=== PATIENT | female | born 1980 | race African-American/Black ===

== ENCOUNTER 2019-07-30 22:47 | Emergency (ER) | payer OTHER ==
[~2019-07-30] VITALS: Ht 172.7 cm; Wt 118.1 kg
[~2019-07-30 22:47] MED LIST: PROM25AM6 PO
[2019-07-30] MEDS ORDERED: SULFAMETH./TRIMETHOPRIM DS 800MG/160MG TABLET PO ONE (23:00)
[2019-07-30] MEDS ORDERED: LIDOCAINE-MPF 1%, 5ML INFIL ONE (23:00)
[2019-07-30] MEDS ORDERED: CEPHALEXIN 500 MG CAPSULE PO ONE (23:00)
[2019-07-30] MEDS ORDERED: ONDANSETRON ODT 4 MG ONE (23:16)
--- NOTE | 2019-07-30 23:16 | NUR ---
Patient presents to ER c/o nausea and anxiety. She saw her PCP on Sunday for flank pain; her urine came back normal and she was supposed to get labs drawn but she hasn't felt good enough. Her BP meds were supposed to be filled after the labs, therefore she has been out of her BP meds for a couple days and is anxious because of it. Patient has been through some major life changes recently and is feeling stressed but she has the support of her father. Patient appears anxious but otherwise in NAD. Patient denies pain but states she has "fluttering" in her chest. Patient is currently nauseous.
[2019-07-30] MEDS ORDERED: ONDANSETRON ODT 4 MG PO ONE (23:30)
[2019-07-30 23:41] LABS: HCG UR SG 1.036 (1.003-1.030)
[2019-07-30 23:42] LABS: MICROSCOPIC INDICATED
[2019-07-30 23:45] LABS: BASOPHILS # (AUTO) 0.03 x10^3/uL (0-0.1); BASOPHILS % (AUTO) 0 % (0-1); EOSINOPHILS # (AUTO) 0.05 x10^3/uL (0-0.4); EOSINOPHILS % (AUTO) 1 % (1-7); LYMPHOCYTES # (AUTO) 1.72 x10^3/uL (1-3.4); LYMPHOCYTES % (AUTO) 16 % (22-44); MD NO; MEAN CORPUSCULAR HGB CONC 31.9 g/dL (32.4-35.8); MEAN CORPUSCULAR VOLUME 81.5 fL (80-100); MONOCYTES % (AUTO) 5 % (2-9); NEUTROPHILS # (AUTO) 8.17 x10^3/uL (1.8-6.8); NEUTROPHILS % (AUTO) 78 % (42-75); PLATELET COUNT 264 x10^3/uL (130-400); RED BLOOD COUNT 4.77 x10^6/uL (3.82-5.3); RED CELL DISTRIBUTION WIDTH 15.6 % (9.6-15.2)
[2019-07-30 23:51] LABS: ALBUMIN 3.4 g/dL (3.4-5.0); ANION GAP 6 mmol/L (5-15); CALCIUM 8.5 mg/dL (8.5-10.1); CHLORIDE 110 mmol/L (98-107)
[2019-07-30 23:57] LABS: ALANINE AMINOTRANSFERASE 20 U/L (12-78); ALKALINE PHOSPHATASE 55 U/L (45-117); BILIRUBIN,TOTAL 0.5 mg/dL (0.2-1.0); CREATININE 1.04 mg/dL (0.55-1.02); TOTAL PROTEIN 7.6 g/dL (6.4-8.2); TROPONIN I < 0.015 ng/mL (0.000-0.045)
[2019-07-31 00:05] VITALS: BP 139/81
== END 2019-07-31 01:10 | disposition home or self-care (01) ==
LOC: ED 23:30
DX: R07.89 Other chest pain (principal); F41.1 Generalized anxiety disorder; R11.2 Nausea with vomiting, unspecified; I10 Essential (primary) hypertension
CPT/HCPCS: 36415; 71046; 80053; 81001; 81025; 84484; 85025; 93005; 99284; Q0162

== ENCOUNTER 2019-08-13 17:41 | Emergency (ER) | payer OTHER ==
[~2019-08-13] VITALS: Ht 172.7 cm; Wt 114.3 kg
[2019-08-13 17:43] VITALS: BP 117/73
--- NOTE | 2019-08-13 19:32 | NUR ---
PT. WAS CALLED AT 0, 1919 AND 1929 NO ANSWER.
== END 2019-08-13 19:35 ==
LOC: ED 19:25
DX: R00.2 Palpitations (principal); R20.0 Anesthesia of skin; R10.31 Right lower quadrant pain; Z53.21 Procedure and treatment not carried out due to patient leaving prior to being seen by health care provider
CPT/HCPCS: 93005

== ENCOUNTER 2019-08-16 06:01 | Emergency (ER) | payer BC, OTHER ==
[~2019-08-16] VITALS: Ht 172.7 cm; Wt 114.8 kg
[2019-08-16] MEDS ORDERED: HYDROmorphone 2 MG/ML, 1ML IVPush PRN (06:30)
[2019-08-16] MEDS ORDERED: SODIUM CHLORIDE FLUSH 10ML SYR IVF ONE (06:30)
[2019-08-16] MEDS ORDERED: ONDANSETRON 2MG/ML, 2ML IVPush ONE (06:30)
--- NOTE | 2019-08-16 06:56 | NUR ---
RECEIVED REPORT FROM CHICO PABLO. PT TEARY AND UPSET BECAUSE SHE DOES NOT KNOW WHAT IS GOING ON WITH HER BODY. PT STATES SHE HAS HAD ABDOMINAL PAIN AND N/V FOR 2 WEEKS. UP TO BATHROOM TO GIVE SAMPLE AND TO BE MEDICATED PER ORDERS FOR PAIN
[2019-08-16] MEDS ORDERED: ONDANSETRON 2MG/ML, 2ML ONE (07:01)
[2019-08-16] MEDS ORDERED: HYDROmorphone 1 MG/ML, 1ML INJ ONE (07:01)
[2019-08-16 07:09] LABS: BASOPHILS # (AUTO) 0.02 x10^3/uL (0-0.1); BASOPHILS % (AUTO) 0 % (0-1); EOSINOPHILS # (AUTO) 0.08 x10^3/uL (0-0.4); EOSINOPHILS % (AUTO) 1 % (1-7); LYMPHOCYTES % (AUTO) 24 % (22-44); MD NO; MEAN CORPUSCULAR HEMOGLOBIN 26.1 pg (27.0-34.8); MEAN CORPUSCULAR HGB CONC 31.8 g/dL (32.4-35.8); MEAN PLATELET VOLUME 8.4 fL (7.4-10.4); MONOCYTES # (AUTO) 0.54 x10^3/uL (0.2-0.8); MONOCYTES % (AUTO) 6 % (2-9); NEUTROPHILS # (AUTO) 5.84 x10^3/uL (1.8-6.8); NEUTROPHILS % (AUTO) 69 % (42-75); PLATELET COUNT 271 x10^3/uL (130-400); RED BLOOD COUNT 4.86 x10^6/uL (3.82-5.3); RED CELL DISTRIBUTION WIDTH 15.6 % (9.6-15.2)
--- NOTE | 2019-08-16 07:15 | NUR ---
TECH AT BEDSIDE PERFORMING ULTRASOUND
[2019-08-16 07:17] LABS: ALANINE AMINOTRANSFERASE 14 U/L (12-78); ALBUMIN 3.5 g/dL (3.4-5.0); ANION GAP 7 mmol/L (5-15); CALCIUM 8.7 mg/dL (8.5-10.1); CHLORIDE 107 mmol/L (98-107); CREATININE 1.12 mg/dL (0.55-1.02)
[2019-08-16 07:22] LABS: ALKALINE PHOSPHATASE 58 U/L (45-117); BILIRUBIN,TOTAL 0.3 mg/dL (0.2-1.0); TOTAL PROTEIN 7.7 g/dL (6.4-8.2)
[2019-08-16 07:51] LABS: MICROSCOPIC AUTO
[2019-08-16 07:54] LABS: CULTURE INDICATED? NO
--- NOTE | 2019-08-16 07:57 | NUR ---
PAIN IMPROVED SINCE MEDICATED. AWAITING DISPO
[2019-08-16] MEDS ORDERED: OMNIPAQUE 350 MG/ML, 100ML BOTTLE ONE (08:47)
--- NOTE | 2019-08-16 09:24 | NUR ---
CLIENT FINANCE ANALYST AND PT STATE SHE HAD SHOULDER PAIN WHEN RECEIVING CONTRAST. C/O NO PROBLEMS WITH AIRWAY. AT THIS TIME SHE STATES SHE HAS NO SYMPTOMS.
[2019-08-16 09:56] VITALS: BP 122/75
== END 2019-08-16 09:58 | disposition home or self-care (01) ==
LOC: ED 06:38
DX: R10.84 Generalized abdominal pain (principal); I10 Essential (primary) hypertension; Z98.51 Tubal ligation status
CPT/HCPCS: 36415; 74022; 74177; 76700; 80053; 81001; 83690; 84703; 85025; 96374; 96375; 99284; J1170; J2405; Q9967

== ENCOUNTER 2019-09-11 12:11 | Emergency (ER) | payer OTHER ==
[~2019-09-11] VITALS: Ht 172.7 cm; Wt 112.2 kg
[2019-09-11] MEDS ORDERED: ADENOSINE 6 MG/2 ML ONE (12:22)
[2019-09-11 13:00] LABS: BASOPHILS # (AUTO) 0.03 x10^3/uL (0-0.1); BASOPHILS % (AUTO) 0 % (0-1); EOSINOPHILS # (AUTO) 0.28 x10^3/uL (0-0.4); EOSINOPHILS % (AUTO) 3 % (1-7); LYMPHOCYTES # (AUTO) 1.92 x10^3/uL (1-3.4); LYMPHOCYTES % (AUTO) 20 % (22-44); MD NO; MEAN CORPUSCULAR HEMOGLOBIN 26.3 pg (27.0-34.8); MEAN CORPUSCULAR HGB CONC 32.1 g/dL (32.4-35.8); MEAN PLATELET VOLUME 8.6 fL (7.4-10.4); MONOCYTES # (AUTO) 0.61 x10^3/uL (0.2-0.8); MONOCYTES % (AUTO) 6 % (2-9); NEUTROPHILS # (AUTO) 6.98 x10^3/uL (1.8-6.8); NEUTROPHILS % (AUTO) 71 % (42-75); PLATELET COUNT 248 x10^3/uL (130-400); RED BLOOD COUNT 4.82 x10^6/uL (3.82-5.3); RED CELL DISTRIBUTION WIDTH 15.9 % (9.6-15.2)
[2019-09-11 13:06] LABS: ALANINE AMINOTRANSFERASE 18 U/L (12-78); ALBUMIN 3.5 g/dL (3.4-5.0); ANION GAP 8 mmol/L (5-15); CALCIUM 8.9 mg/dL (8.5-10.1); CHLORIDE 106 mmol/L (98-107); CREATININE 1.01 mg/dL (0.55-1.02)
[2019-09-11 13:08] LABS: ALKALINE PHOSPHATASE 65 U/L (45-117); BILIRUBIN,TOTAL 0.2 mg/dL (0.2-1.0); TOTAL PROTEIN 7.8 g/dL (6.4-8.2)
--- NOTE | 2019-09-11 13:34 | NUR ---
PT HERE WITH MULTIPLE C/O STATING THROAT PAIN, BODY ACHES, HEADACHE, PAINFUL LYMPH NODES. PT STATES SHE HAS BEEN TO MULTIPLE DOCTORS AND HAS "HAD NO ANSWERS." PT DRESSED IN GOWN AND ON MONITOR, NAD, ROOM AIR, CALL LIGHT WITHIN REACH. PT STATES SHE WAS SENT TO [facility]IMARY AND THEY SENT HER HERE FOR A MONO TEST. PT VERY TEARFUL, STATES FRUSTRATION THAT SHE DOES NOT KNOW WHAT IS WRONG. SIDERAIL X [address]
[2019-09-11] MEDS ORDERED: AMLO10TA8 PO (13:41)
[2019-09-11] MEDS ORDERED: HYDR25TA6 PO (13:41)
--- NOTE | 2019-09-11 13:42 | NUR ---
MED REC COMPLETED.
--- NOTE | 2019-09-11 14:11 | NUR ---
US AT BEDSIDE.
[2019-09-11 14:38] VITALS: BP 132/83
[2019-09-11] MEDS ORDERED: ACETAMINOPHEN 500 MG TABLET ONE (14:41)
[2019-09-11] MEDS ORDERED: ONDANSETRON ODT 4 MG ONE (14:41)
--- NOTE | 2019-09-11 14:45 | NUR ---
PT C/O 02/22 HEADACHE AND NAUSEA. UPDATED. ORDERED TYLENOL AND ZOFRAN. PT TOOK ZOFRAN BUT REFUSED TYLENOL. STATES "THIS WON'T DO ANYTHING". UPDATED. NO NEW ORDERS AT THIS TIME.
[2019-09-11] MEDS ORDERED: ACETAMINOPHEN 500 MG TABLET PO ONE (15:00)
[2019-09-11] MEDS ORDERED: ONDANSETRON ODT 4 MG PO ONE (15:00)
--- NOTE | 2019-09-11 15:22 | NUR ---
PT AWAITING DC PAPERWORK.
--- NOTE | 2019-09-11 15:50 | NUR ---
Patient given discharge instructions and they have confirmed that they understand the instructions. Patient ambulatory with steady gait.
== END 2019-09-11 15:51 | disposition home or self-care (01) ==
LOC: ED 15:45
DX: M79.10 Myalgia, unspecified site (principal); R51 Headache; J02.9 Acute pharyngitis, unspecified; B34.9 Viral infection, unspecified; I10 Essential (primary) hypertension
CPT/HCPCS: 36415; 71046; 76700; 80053; 83690; 85025; 86308; 99285; Q0162

== ENCOUNTER 2019-11-10 06:40 | Outpatient (CLI) | payer OTHER ==
[~2019-11-10 06:40] MED LIST changes: +AMLO10TA8 PO; +HYDR25TA6 PO
== END 2019-11-10 23:59 | disposition home or self-care (01) ==
LOC: RAD 06:40
PROVIDERS: ATTEND Internal Medicine Gastroenterology
DX: K59.00 Constipation, unspecified (principal); R14.0 Abdominal distension (gaseous); R10.11 Right upper quadrant pain; R10.12 Left upper quadrant pain; R63.4 Abnormal weight loss
CPT/HCPCS: 74240; 74248; 76770

== ENCOUNTER 2019-11-16 11:30 | Emergency (ER) | payer OTHER ==
[~2019-11-16] VITALS: Ht 172.7 cm; Wt 102.0 kg
[2019-11-16] MEDS ORDERED: SODIUM CHLORIDE 0.9% 1,000 ML IV ONE (12:11)
[2019-11-16 12:23] LABS: BASOPHILS # (AUTO) 0.03 x10^3/uL (0-0.1); BASOPHILS % (AUTO) 0 % (0-1); EOSINOPHILS # (AUTO) 0.03 x10^3/uL (0-0.4); EOSINOPHILS % (AUTO) 0 % (1-7); LYMPHOCYTES # (AUTO) 2.39 x10^3/uL (1-3.4); LYMPHOCYTES % (AUTO) 25 % (22-44); MD NO; MEAN CORPUSCULAR HEMOGLOBIN 27.5 pg (27.0-34.8); MEAN CORPUSCULAR HGB CONC 32.5 g/dL (32.4-35.8); MEAN CORPUSCULAR VOLUME 84.6 fL (80-100); MEAN PLATELET VOLUME 8.7 fL (7.4-10.4); MONOCYTES # (AUTO) 0.49 x10^3/uL (0.2-0.8); MONOCYTES % (AUTO) 5 % (2-9); NEUTROPHILS # (AUTO) 6.78 x10^3/uL (1.8-6.8); NEUTROPHILS % (AUTO) 70 % (42-75); PLATELET COUNT 293 x10^3/uL (130-400); RED BLOOD COUNT 5.25 x10^6/uL (3.82-5.3); RED CELL DISTRIBUTION WIDTH 15.9 % (9.6-15.2)
[2019-11-16] MEDS ORDERED: ONDANSETRON 2MG/ML, 2ML IV ONE (12:30)
[2019-11-16] MEDS ORDERED: KETOROLAC 30 MG/1 ML IVPush ONE (12:30)
[2019-11-16] MEDS ORDERED: SODIUM CHLORIDE 0.9% 1,000ML IVBOLUS ONE (12:30)
[2019-11-16] MEDS ORDERED: SODIUM CHLORIDE FLUSH 10ML SYR IVF ONE (12:30)
[2019-11-16 12:34] LABS: ALANINE AMINOTRANSFERASE 15 U/L (12-78); ALBUMIN 3.5 g/dL (3.4-5.0); ANION GAP 9 mmol/L (5-15); CHLORIDE 102 mmol/L (98-107); CREATININE 1.11 mg/dL (0.55-1.02)
[2019-11-16 12:38] LABS: ALKALINE PHOSPHATASE 54 U/L (45-117); BILIRUBIN,TOTAL 0.3 mg/dL (0.2-1.0); TOTAL PROTEIN 7.7 g/dL (6.4-8.2); TROPONIN I < 0.015 ng/mL (0.000-0.045)
[2019-11-16] MEDS ORDERED: ONDANSETRON 2MG/ML, 2ML ONE (12:42)
[2019-11-16] MEDS ORDERED: KETOROLAC 30 MG/1 ML ONE (12:42)
[2019-11-16] MEDS ORDERED: POTASSIUM CHLORIDE 20 MEQ TAB.ER.PRT PO ONE (13:30)
[2019-11-16 13:42] VITALS: BP 144/86
== END 2019-11-16 14:28 | disposition home or self-care (01) ==
LOC: ED 12:05
DX: R07.89 Other chest pain (principal); I10 Essential (primary) hypertension; Z98.51 Tubal ligation status
CPT/HCPCS: 36415; 71045; 80053; 84484; 85025; 93005; 96374; 99285; J1885; J7030

== ENCOUNTER 2019-11-30 04:06 | Emergency (ER) | payer OTHER ==
[~2019-11-30] VITALS: Ht 172.7 cm; Wt 105.3 kg
[2019-11-30] MEDS ORDERED: SODIUM CHLORIDE 0.9% 1,000ML IVBOLUS ONE (05:00)
[2019-11-30] MEDS ORDERED: METOCLOPRAMIDE 5 MG/ML, 2ML IVPush ONE (05:00)
[2019-11-30] MEDS ORDERED: DIPHENHYDRAMINE 50 MG/ML, 1ML IVPush ONE (05:00)
[2019-11-30] MEDS ORDERED: METOCLOPRAMIDE 5 MG/ML, 2ML ONE (05:01)
[2019-11-30] MEDS ORDERED: DIPHENHYDRAMINE 50 MG/ML, 1ML ONE (05:01)
[2019-11-30 05:09] LABS: BASOPHILS # (AUTO) 0.02 x10^3/uL (0-0.1); BASOPHILS % (AUTO) 0 % (0-1); EOSINOPHILS # (AUTO) 0.12 x10^3/uL (0-0.4); EOSINOPHILS % (AUTO) 2 % (1-7); LYMPHOCYTES # (AUTO) 2.18 x10^3/uL (1-3.4); LYMPHOCYTES % (AUTO) 27 % (22-44); MD NO; MEAN CORPUSCULAR HEMOGLOBIN 27.7 pg (27.0-34.8); MEAN CORPUSCULAR HGB CONC 32.5 g/dL (32.4-35.8); MEAN CORPUSCULAR VOLUME 85.1 fL (80-100); MEAN PLATELET VOLUME 8.8 fL (7.4-10.4); MONOCYTES # (AUTO) 0.54 x10^3/uL (0.2-0.8); MONOCYTES % (AUTO) 7 % (2-9); NEUTROPHILS # (AUTO) 5.09 x10^3/uL (1.8-6.8); NEUTROPHILS % (AUTO) 64 % (42-75); PLATELET COUNT 218 x10^3/uL (130-400); RED BLOOD COUNT 4.79 x10^6/uL (3.82-5.3); RED CELL DISTRIBUTION WIDTH 16.5 % (9.6-15.2)
--- NOTE | 2019-11-30 05:14 | NUR ---
C/O NECK PAIN, HEADACHE, N/V x A COUPLE DAYS. PIV PLACED AND PT MEDICATED FOR DE [place] TORRE PER EMAR.
[2019-11-30 05:15] LABS: ALBUMIN 3.4 g/dL (3.4-5.0); ANION GAP 5 mmol/L (5-15); CHLORIDE 107 mmol/L (98-107); CREATININE 1.11 mg/dL (0.55-1.02)
--- NOTE | 2019-11-30 06:49 | NUR ---
pt reports her head and neck still hurt with pain improving from a 910 to a 810
[2019-11-30] MEDS ORDERED: KETOROLAC 30 MG/1 ML ONE (07:11)
--- NOTE | 2019-11-30 07:12 | NUR ---
REPORT RECEIVED FROM SAMY UMANZOR. THIS RN TO ASSUME FULL CARE. PT LAYING IN BED, LIGHTS OFF FOR COMFORT. VSS. WILL CONTINUE TO MONITOR.
[2019-11-30 07:13] VITALS: BP 120/72
--- NOTE | 2019-11-30 07:23 | NUR ---
ERP TO BEDSIDE.
[2019-11-30] MEDS ORDERED: KETOROLAC 30 MG/1 ML IVPush ONE (07:30)
== END 2019-11-30 08:18 | disposition home or self-care (01) ==
LOC: ED 05:51
DX: G89.29 Other chronic pain (principal); R51 Headache; R11.2 Nausea with vomiting, unspecified; I10 Essential (primary) hypertension
CPT/HCPCS: 36415; 80048; 82040; 85025; 96361; 96374; 96375; 99284; J1200; J1885; J2765; J7030

== ENCOUNTER 2020-02-12 10:07 | Emergency (ER) | payer OTHER ==
[~2020-02-12] VITALS: Ht 172.7 cm; Wt 108.0 kg
[2020-02-12] MEDS ORDERED: PROP10TA51 PO (10:22)
[2020-02-12] MEDS ORDERED: URSO250T3 PO (10:22)
[2020-02-12] MEDS ORDERED: BUTA1CAP59 PO (10:22)
[2020-02-12] MEDS ORDERED: TUMERIC (10:29)
[2020-02-12] MEDS ORDERED: SODIUM CHLORIDE FLUSH 10ML SYR IVF ONE (10:30)
[2020-02-12] MEDS ORDERED: ONDANSETRON 2MG/ML, 2ML IVPush ONE (10:30)
--- NOTE | 2020-02-12 10:38 | NUR ---
PT C/O RUQ PAIN RADIATING TO RT FLANK AREA. NO MEDS TAKEN FOR SX. LAST ORAL: WATER THIS AM, FOOD LAST NOC. PT STATES SHE HAD COVID EXPOSURE 2 WEEKS AGO, WAS TESTED LAST SUNDAY "BUT THE LAB LOST MY RESULTS SO THEY WERE GOING TO RETEST ME". PT DENIES COVID SX CURRENTLY. RESP EVEN & UNLABORED, SPEECH CLEAR, SKIN WNL. U/S AT BS
[2020-02-12] MEDS ORDERED: IRON (10:45)
[2020-02-12] MEDS ORDERED: VITAMIN B (10:45)
[2020-02-12] MEDS ORDERED: [UNRECOGNIZED DRUG - OTHER] (10:45)
[2020-02-12 11:02] LABS: MICROSCOPIC AUTO
[2020-02-12 11:06] LABS: BASOPHILS # (AUTO) 0.02 x10^3/uL (0-0.1); BASOPHILS % (AUTO) 0 % (0-1); EOSINOPHILS # (AUTO) 0.13 x10^3/uL (0-0.4); EOSINOPHILS % (AUTO) 2 % (1-7); LYMPHOCYTES % (AUTO) 33 % (22-44); MD NO; MEAN CORPUSCULAR HEMOGLOBIN 26.8 pg (27.0-34.8); MEAN CORPUSCULAR HGB CONC 31.5 g/dL (32.4-35.8); MEAN CORPUSCULAR VOLUME 85.2 fL (80-100); MEAN PLATELET VOLUME 8.1 fL (7.4-10.4); MONOCYTES # (AUTO) 0.41 x10^3/uL (0.2-0.8); MONOCYTES % (AUTO) 6 % (2-9); NEUTROPHILS # (AUTO) 3.72 x10^3/uL (1.8-6.8); NEUTROPHILS % (AUTO) 58 % (42-75); PLATELET COUNT 227 x10^3/uL (130-400); RED BLOOD COUNT 4.43 x10^6/uL (3.82-5.3)
--- NOTE | 2020-02-12 11:09 | NUR ---
PT DENIES NAUSEA; WILL HOLD ZOFRAN, FOR NOW. WILL REQUEST PAIN MED FOR PT.
[2020-02-12 11:12] LABS: ANION GAP 4 mmol/L (5-15); CALCIUM 8.6 mg/dL (8.5-10.1); CHLORIDE 111 mmol/L (98-107)
[2020-02-12] MEDS ORDERED: ACETAMINOPHEN 325 MG TABLET ONE (11:15)
[2020-02-12] MEDS ORDERED: ACETAMINOPHEN 325 MG TABLET PO ONE (11:30)
[2020-02-12 11:44] LABS: ALANINE AMINOTRANSFERASE 18 U/L (12-78); ALKALINE PHOSPHATASE 57 U/L (45-117); BILIRUBIN,TOTAL 0.3 mg/dL (0.2-1.0); CREATININE 0.92 mg/dL (0.55-1.02)
--- NOTE | 2020-02-12 12:20 | NUR ---
PT REQUESTED COPIES OF LAB AND U/S REPORTS. DOCUMENTS PRINTED FOR PT.
[2020-02-12 12:29] VITALS: BP 135/84
== END 2020-02-12 12:40 | disposition home or self-care (01) ==
LOC: ED 10:42
DX: R10.11 Right upper quadrant pain (principal); R11.0 Nausea; I10 Essential (primary) hypertension; Z88.9 Allergy status to unspecified drugs, medicaments and biological substances; Z98.51 Tubal ligation status; Z79.899 Other long term (current) drug therapy
CPT/HCPCS: 36415; 76700; 80053; 81001; 83690; 84703; 85025; 87086; 99284

== ENCOUNTER → 2020-04-08 | Outpatient (CLI) | payer OTHER ==
[~2020-04-08] MED LIST changes: +ALPR0.25 PO; +BUTA1CAP59 PO; +Co Q-10 PO; +IRON; +PROP10TA51 PO; +TUMERIC; +URSO250T3 PO; +VITAMIN B; +[UNRECOGNIZED DRUG - OTHER]
[2020-04-08 17:02] LABS: ALANINE AMINOTRANSFERASE 18 U/L (12-78); ALBUMIN 3.5 g/dL (3.4-5.0); ANION GAP 5 mmol/L (5-15); CHLORIDE 105 mmol/L (98-107)
[2020-04-08 17:05] LABS: ALKALINE PHOSPHATASE 59 U/L (45-117); BILIRUBIN,TOTAL 0.2 mg/dL (0.2-1.0); CREATININE 1.04 mg/dL (0.55-1.02); TOTAL PROTEIN 7.8 g/dL (6.4-8.2)
[2020-04-11 09:22] LABS: BASOPHILS # (AUTO) 0.02 x10^3/uL (0-0.1); BASOPHILS % (AUTO) 0 % (0-1); EOSINOPHILS # (AUTO) 0.04 x10^3/uL (0-0.4); EOSINOPHILS % (AUTO) 1 % (1-7); LYMPHOCYTES # (AUTO) 1.77 x10^3/uL (1-3.4); LYMPHOCYTES % (AUTO) 25 % (22-44); MD NO; MEAN CORPUSCULAR HEMOGLOBIN 26.9 pg (27.0-34.8); MEAN CORPUSCULAR HGB CONC 31.6 g/dL (32.4-35.8); MEAN PLATELET VOLUME 7.9 fL (7.4-10.4); MONOCYTES # (AUTO) 0.39 x10^3/uL (0.2-0.8); MONOCYTES % (AUTO) 6 % (2-9); NEUTROPHILS # (AUTO) 4.91 x10^3/uL (1.8-6.8); NEUTROPHILS % (AUTO) 69 % (42-75); PLATELET COUNT 236 x10^3/uL (130-400); RED BLOOD COUNT 4.74 x10^6/uL (3.82-5.3); RED CELL DISTRIBUTION WIDTH 15.2 % (9.6-15.2)
== END | disposition home or self-care (01) ==
LOC: STAR 15:44
PROVIDERS: ATTEND Surgery
DX: Z01.812 Encounter for preprocedural laboratory examination (principal); Z20.828 Contact with and (suspected) exposure to other viral communicable diseases
CPT/HCPCS: 36415; 80053; 85025; 87635

== ENCOUNTER 2020-04-14 10:44 | Inpatient (IN) | payer OTHER ==
[~2020-04-14] VITALS: Ht 172.7 cm; Wt 118.0 kg
[2020-04-14] MEDS ORDERED: HYDROmorphone 1 MG/ML, 1ML INJ ONE ×3 (10:59→14:45)
[2020-04-14] MEDS ORDERED: ONDANSETRON 2MG/ML, 2ML ONE ×2 (11:00→11:19)
[2020-04-14] MEDS: HYDROmorphone 2 MG/ML, 1ML IVPush PRN ×5 (11:07→23:48)
[2020-04-14 11:14] LABS: MEAN CORPUSCULAR HEMOGLOBIN 27.1 pg (27.0-34.8); MEAN PLATELET VOLUME 8.1 fL (7.4-10.4); PLATELET COUNT 223 x10^3/uL (130-400); RED BLOOD COUNT 4.46 x10^6/uL (3.82-5.3); RED CELL DISTRIBUTION WIDTH 14.9 % (9.6-15.2)
[2020-04-14 11:25] LABS: ALANINE AMINOTRANSFERASE 179 U/L (12-78); ALBUMIN 3.2 g/dL (3.4-5.0); ANION GAP 5 mmol/L (5-15); CALCIUM 8.6 mg/dL (8.5-10.1); CHLORIDE 105 mmol/L (98-107)
[2020-04-14 11:27] LABS: BASOPHILS # (AUTO) 0.05 x10^3/uL (0-0.1); BASOPHILS % (AUTO) 0 % (0-1); EOSINOPHILS # (AUTO) 0.03 x10^3/uL (0-0.4); EOSINOPHILS % (AUTO) 0 % (1-7); LYMPHOCYTES # (AUTO) 0.71 x10^3/uL (1-3.4); LYMPHOCYTES % (AUTO) 6 % (22-44); MD SCAN; MONOCYTES # (AUTO) 0.36 x10^3/uL (0.2-0.8); MONOCYTES % (AUTO) 3 % (2-9); NEUTROPHILS # (AUTO) 11.09 x10^3/uL (1.8-6.8); NEUTROPHILS % (AUTO) 91 % (42-75)
[2020-04-14 11:30] LABS: ALKALINE PHOSPHATASE 74 U/L (45-117); BILIRUBIN,TOTAL 0.3 mg/dL (0.2-1.0); CREATININE 0.96 mg/dL (0.55-1.02); TOTAL PROTEIN 7.3 g/dL (6.4-8.2)
[2020-04-14] MEDS ORDERED: SODIUM CHLORIDE FLUSH 10ML SYR IVF ONE (12:00)
[2020-04-14] MEDS ORDERED: ONDANSETRON 2MG/ML, 2ML IVPush ONE (12:00)
[2020-04-14] MEDS ORDERED: OMNIPAQUE 350 MG/ML, 100ML BOTTLE ONE (12:18)
[2020-04-14 12:58] LABS: MICROSCOPIC INDICATED
[2020-04-14] MEDS ORDERED: HYDROmorphone 1 MG/ML, 1ML INJ IV ONE (14:30)
[2020-04-14 17:24] VITALS: BP 145/92
[2020-04-14] MEDS ORDERED: LABETALOL 5MG/ML, 20ML IVPush PRN (18:00)
[2020-04-14] MEDS ORDERED: BISACODYL 10 MG SUPP PR PRN (18:00)
[2020-04-14] MEDS ORDERED: OXYcodone IR 5MG TABLET PO PRN (18:00)
[2020-04-14] MEDS ORDERED: POLYETHYLENE GLYCOL 17 GM PACKET PO PRN (18:00)
[2020-04-14] MEDS: PIPERACILLIN/TAZO/PMX 3.375GM 50 ML IV SCH (18:40)
[2020-04-14 19:44] VITALS: BP 137/87
[2020-04-14] MEDS: FAMOTIDINE 20 MG TABLET PO SCH (20:55)
[2020-04-14] MEDS: D5%-LR+KCL 20MEQ 1,000 ML IV SCH (21:05)
[2020-04-14 23:35] VITALS: BP 145/91
[2020-04-14] MEDS: TEMAZEPAM 15 MG CAPSULE PO PRN (23:39)
[2020-04-15] MEDS ORDERED: AMLODIPINE 10 MG TAB PO ONE
[2020-04-15] MEDS: PIPERACILLIN/TAZO/PMX 3.375GM 50 ML IV SCH ×4 (00:57→21:03)
[2020-04-15 04:00] VITALS: BP 122/82
[2020-04-15] MEDS: HYDROmorphone 2 MG/ML, 1ML IVPush PRN ×5 (04:08→21:12)
[2020-04-15] MEDS: D5%-LR+KCL 20MEQ 1,000 ML IV SCH ×2 (04:09→21:03)
[2020-04-15 05:26] LABS: HCT (SEDRATE) 35.8 % (34.6-47.8)
[2020-04-15 05:33] LABS: BASOPHILS # (AUTO) 0.04 x10^3/uL (0-0.1); BASOPHILS % (AUTO) 0 % (0-1); EOSINOPHILS % (AUTO) 2 % (1-7); LYMPHOCYTES # (AUTO) 1.46 x10^3/uL (1-3.4); LYMPHOCYTES % (AUTO) 13 % (22-44); MD NO; MEAN CORPUSCULAR HGB CONC 31.6 g/dL (32.4-35.8); MEAN PLATELET VOLUME 8.3 fL (7.4-10.4); MONOCYTES # (AUTO) 0.86 x10^3/uL (0.2-0.8); MONOCYTES % (AUTO) 8 % (2-9); NEUTROPHILS # (AUTO) 8.32 x10^3/uL (1.8-6.8); NEUTROPHILS % (AUTO) 77 % (42-75); PLATELET COUNT 221 x10^3/uL (130-400); RED CELL DISTRIBUTION WIDTH 14.7 % (9.6-15.2)
[2020-04-15 05:34] LABS: ALANINE AMINOTRANSFERASE 122 U/L (12-78); ALBUMIN 2.7 g/dL (3.4-5.0); ANION GAP 6 mmol/L (5-15); CALCIUM 8.5 mg/dL (8.5-10.1); CHLORIDE 105 mmol/L (98-107); CREATININE 1.01 mg/dL (0.55-1.02)
[2020-04-15 05:42] LABS: ALKALINE PHOSPHATASE 73 U/L (45-117); BILIRUBIN,TOTAL 0.9 mg/dL (0.2-1.0); TOTAL PROTEIN 6.4 g/dL (6.4-8.2)
[2020-04-15 05:55] LABS: INTERNATIONAL NORMALIZED RATIO 1.01 (0.93-1.1); PROTHROMBIN TIME 10.4 Seconds (9.6-11.5)
[2020-04-15 06:18] VITALS: BP 129/85
[2020-04-15] MEDS: AMLODIPINE 10 MG TAB PO SCH (09:34)
[2020-04-15] MEDS: FAMOTIDINE 20 MG TABLET PO SCH ×2 (09:34→21:12)
[2020-04-15] MEDS ORDERED: MIDAZOLAM 1 MG/ML, 2ML ONE (11:32)
[2020-04-15] MEDS ORDERED: FENTANYL PF 100 MCG/2ML ONE ×2 (11:32→12:14)
[2020-04-15] MEDS ORDERED: CHLORHEXIDINE 15 ML UDC ONE (11:46)
[2020-04-15] MEDS ORDERED: SUCCINYLCHOLINE 20 MG/ML, 10ML ONE (12:15)
[2020-04-15] MEDS ORDERED: ROCURONIUM 10MG/ML,5ML ONE (12:15)
[2020-04-15] MEDS ORDERED: LIDOCAINE-MPF 2% ,5ML ONE (12:44)
[2020-04-15] MEDS ORDERED: PROPOFOL 10 MG/ML, 20ML ONE (12:45)
[2020-04-15] MEDS ORDERED: ONDANSETRON 2MG/ML, 2ML ONE (12:45)
[2020-04-15] MEDS ORDERED: DEXAMETHASONE 4 MG/ML, 1ML ONE (12:45)
[2020-04-15] MEDS ORDERED: CEFAZOLIN 1,000 MG ONE (12:45)
[2020-04-15] MEDS ORDERED: hydrALAzine 20 MG/ML, 1ML IV PRN (13:00)
[2020-04-15] MEDS ORDERED: PROMETHAZINE 25 MG/ML, 1ML IVPush PRN (13:00)
[2020-04-15] MEDS ORDERED: FENTANYL PF 100 MCG/2ML IV PRN (13:00)
[2020-04-15] MEDS ORDERED: HYDROmorphone 1 MG/ML, 1ML INJ IVPush PRN (13:00)
[2020-04-15] MEDS ORDERED: MEPERIDINE/PF 25MG/0.5ML IVPush PRN (13:00)
[2020-04-15] MEDS ORDERED: LORazepam 2 MG/ML, 1ML IVPush PRN (13:00)
[2020-04-15] MEDS ORDERED: ALBUTEROL SULFATE 2.5 MG/3 ML NPPB PRN (13:00)
[2020-04-15] MEDS ORDERED: OXYcodone 5 MG/5 ML ORAL.SOL UDC PO PRN (13:00)
[2020-04-15] MEDS ORDERED: OMNIPAQUE 350 MG/ML, 50 ML BOTTLE ONE (13:35)
[2020-04-15] MEDS ORDERED: INDOMETHACIN 50 MG SUPP.RECT ONE (13:36)
[2020-04-15] MEDS ORDERED: INDOMETHACIN 50 MG SUPP.RECT PR ONE (14:00)
[2020-04-15] MEDS ORDERED: LABETALOL 5MG/ML, 20ML ONE ×2 (14:20→14:21)
[2020-04-15] MEDS: LABETALOL 5MG/ML, 20ML IV PRN ×4 (14:23→14:51)
[2020-04-15] MEDS: KETOROLAC 30 MG/1 ML IVPush SCH ×2 (18:14→23:30)
[2020-04-15 19:40] VITALS: BP 143/87
[2020-04-15] MEDS: ONDANSETRON 2MG/ML, 2ML IVPush PRN (21:12)
[2020-04-16] MEDS: PIPERACILLIN/TAZO/PMX 3.375GM 50 ML IV SCH ×4 (02:58→20:52)
[2020-04-16 03:18] VITALS: BP 143/86
[2020-04-16 05:33] LABS: BASOPHILS % (AUTO) 0 % (0-1); EOSINOPHILS # (AUTO) 0.01 x10^3/uL (0-0.4); EOSINOPHILS % (AUTO) 0 % (1-7); LYMPHOCYTES # (AUTO) 0.77 x10^3/uL (1-3.4); LYMPHOCYTES % (AUTO) 7 % (22-44); MD NO; MEAN CORPUSCULAR HGB CONC 31.6 g/dL (32.4-35.8); MEAN PLATELET VOLUME 8.6 fL (7.4-10.4); MONOCYTES # (AUTO) 0.66 x10^3/uL (0.2-0.8); MONOCYTES % (AUTO) 6 % (2-9); NEUTROPHILS # (AUTO) 10.12 x10^3/uL (1.8-6.8); NEUTROPHILS % (AUTO) 88 % (42-75); PLATELET COUNT 219 x10^3/uL (130-400); RED BLOOD COUNT 4.22 x10^6/uL (3.82-5.3); RED CELL DISTRIBUTION WIDTH 14.9 % (9.6-15.2)
[2020-04-16 05:34] LABS: ALBUMIN 2.4 g/dL (3.4-5.0); ANION GAP 4 mmol/L (5-15); CALCIUM 8.9 mg/dL (8.5-10.1); CHLORIDE 107 mmol/L (98-107)
[2020-04-16 05:38] LABS: CREATININE 1.01 mg/dL (0.55-1.02)
[2020-04-16 05:39] LABS: ALANINE AMINOTRANSFERASE 85 U/L (12-78); ALKALINE PHOSPHATASE 86 U/L (45-117); BILIRUBIN,TOTAL 1.4 mg/dL (0.2-1.0); TOTAL PROTEIN 6.4 g/dL (6.4-8.2)
[2020-04-16] MEDS: KETOROLAC 30 MG/1 ML IVPush SCH ×4 (05:56→21:00)
[2020-04-16 08:11] VITALS: BP 146/91
[2020-04-16] MEDS: OXYcodone IR 5MG TABLET PO SCH ×4 (09:29→20:52)
[2020-04-16] MEDS: FAMOTIDINE 20 MG TABLET PO SCH ×2 (09:29→20:53)
[2020-04-16] MEDS: AMLODIPINE 10 MG TAB PO SCH (09:29)
[2020-04-16 12:45] VITALS: BP 119/81
[2020-04-16] MEDS: LACTATED RINGERS 1,000 ML IV SCH (12:50)
[2020-04-16] MEDS: SENNA/DOCUSATE TABLET PO SCH ×2 (13:05→20:52)
[2020-04-16 15:55] VITALS: BP 122/97
[2020-04-16] MEDS: ONDANSETRON ODT 4 MG PO PRN (18:00)
[2020-04-16 18:40] VITALS: BP 147/82
[2020-04-16] MEDS ORDERED: FAMOTIDINE 40 MG TABLET ONE (20:41)
[2020-04-16] MEDS: ENOXAPARIN 40 MG/0.4 ML SQ SCH (20:52)
[2020-04-17] MEDS: OXYcodone IR 5MG TABLET PO SCH ×6 (00:30→20:30)
[2020-04-17] MEDS: LACTATED RINGERS 1,000 ML IV SCH ×3 (02:00→17:59)
[2020-04-17 02:55] VITALS: BP 132/83
[2020-04-17] MEDS: PIPERACILLIN/TAZO/PMX 3.375GM 50 ML IV SCH ×4 (02:58→21:23)
[2020-04-17] MEDS: HYDROmorphone 2 MG/ML, 1ML IVPush PRN ×2 (03:08→21:07)
[2020-04-17] MEDS: ONDANSETRON 2MG/ML, 2ML IVPush PRN ×2 (03:08→21:06)
[2020-04-17] MEDS: KETOROLAC 30 MG/1 ML IVPush SCH (05:09)
[2020-04-17 05:42] LABS: BASOPHILS # (AUTO) 0.02 x10^3/uL (0-0.1); BASOPHILS % (AUTO) 0 % (0-1); EOSINOPHILS # (AUTO) 0.23 x10^3/uL (0-0.4); EOSINOPHILS % (AUTO) 2 % (1-7); LYMPHOCYTES # (AUTO) 1.19 x10^3/uL (1-3.4); LYMPHOCYTES % (AUTO) 12 % (22-44); MD NO; MEAN CORPUSCULAR HEMOGLOBIN 26.6 pg (27.0-34.8); MEAN CORPUSCULAR HGB CONC 31.3 g/dL (32.4-35.8); MEAN PLATELET VOLUME 7.8 fL (7.4-10.4); MONOCYTES # (AUTO) 0.63 x10^3/uL (0.2-0.8); MONOCYTES % (AUTO) 6 % (2-9); NEUTROPHILS # (AUTO) 7.94 x10^3/uL (1.8-6.8); NEUTROPHILS % (AUTO) 79 % (42-75); PLATELET COUNT 246 x10^3/uL (130-400); RED BLOOD COUNT 3.87 x10^6/uL (3.82-5.3); RED CELL DISTRIBUTION WIDTH 15.6 % (9.6-15.2)
[2020-04-17 05:51] LABS: ALBUMIN 2.1 g/dL (3.4-5.0); ANION GAP 2 mmol/L (5-15); CALCIUM 8.6 mg/dL (8.5-10.1); CHLORIDE 105 mmol/L (98-107); CREATININE 0.95 mg/dL (0.55-1.02)
[2020-04-17 05:59] LABS: ALANINE AMINOTRANSFERASE 60 U/L (12-78); ALKALINE PHOSPHATASE 97 U/L (45-117); BILIRUBIN,TOTAL 2.3 mg/dL (0.2-1.0); C-REACTIVE PROTEIN, QUANT 9.04 mg/dL (0.02-0.49)
[2020-04-17 08:02] VITALS: BP 144/93
[2020-04-17] MEDS: ONDANSETRON ODT 4 MG PO PRN (08:10)
[2020-04-17] MEDS: SENNA/DOCUSATE TABLET PO SCH ×2 (08:10→21:00)
[2020-04-17] MEDS ORDERED: FAMOTIDINE 40 MG TABLET ONE ×2 (08:10→21:01)
[2020-04-17] MEDS: FAMOTIDINE 20 MG TABLET PO SCH ×2 (08:11→21:00)
[2020-04-17] MEDS: AMLODIPINE 10 MG TAB PO SCH (08:11)
[2020-04-17] MEDS: methylPREDNISolone SOD SUCC 125 MG/2 ML IVPush SCH ×2 (10:28→21:24)
[2020-04-17 12:39] VITALS: BP 145/88
[2020-04-17 18:30] VITALS: BP 123/71
[2020-04-17] MEDS: ENOXAPARIN 40 MG/0.4 ML SQ SCH (21:00)
[2020-04-18 00:15] VITALS: BP 129/77
[2020-04-18] MEDS: OXYcodone IR 5MG TABLET PO SCH ×6 (00:45→19:34)
[2020-04-18] MEDS: LACTATED RINGERS 1,000 ML IV SCH (02:00)
[2020-04-18] MEDS: PIPERACILLIN/TAZO/PMX 3.375GM 50 ML IV SCH ×4 (03:32→21:44)
[2020-04-18] MEDS: LORazepam 1MG TABLET PO PRN (04:32)
[2020-04-18 05:22] LABS: BASOPHILS % (AUTO) 0 % (0-1); EOSINOPHILS # (AUTO) 0.02 x10^3/uL (0-0.4); EOSINOPHILS % (AUTO) 0 % (1-7); LYMPHOCYTES # (AUTO) 0.51 x10^3/uL (1-3.4); LYMPHOCYTES % (AUTO) 6 % (22-44); MD NO; MEAN CORPUSCULAR HEMOGLOBIN 27.2 pg (27.0-34.8); MEAN CORPUSCULAR HGB CONC 31.8 g/dL (32.4-35.8); MEAN PLATELET VOLUME 8.4 fL (7.4-10.4); MONOCYTES # (AUTO) 0.09 x10^3/uL (0.2-0.8); MONOCYTES % (AUTO) 1 % (2-9); NEUTROPHILS # (AUTO) 8.02 x10^3/uL (1.8-6.8); NEUTROPHILS % (AUTO) 93 % (42-75); PLATELET COUNT 275 x10^3/uL (130-400); RED BLOOD COUNT 3.94 x10^6/uL (3.82-5.3); RED CELL DISTRIBUTION WIDTH 15.8 % (9.6-15.2)
[2020-04-18 05:24] LABS: CHLORIDE 106 mmol/L (98-107)
[2020-04-18 05:33] LABS: ALANINE AMINOTRANSFERASE 77 U/L (12-78); ALBUMIN 2.3 g/dL (3.4-5.0); ALKALINE PHOSPHATASE 129 U/L (45-117); ANION GAP 5 mmol/L (5-15); BILIRUBIN,TOTAL 1.8 mg/dL (0.2-1.0); CREATININE 0.98 mg/dL (0.55-1.02); TOTAL PROTEIN 6.9 g/dL (6.4-8.2)
[2020-04-18 06:50] VITALS: BP 139/88
[2020-04-18] MEDS: ENOXAPARIN 30 MG/0.3 ML SQ SCH ×2 (08:00→20:00)
[2020-04-18] MEDS ORDERED: FAMOTIDINE 40 MG TABLET ONE ×2 (08:36→19:42)
[2020-04-18] MEDS: SENNA/DOCUSATE TABLET PO SCH ×2 (08:54→19:55)
[2020-04-18] MEDS: AMLODIPINE 10 MG TAB PO SCH (08:55)
[2020-04-18] MEDS: FAMOTIDINE 20 MG TABLET PO SCH ×2 (08:57→19:55)
[2020-04-18] MEDS: methylPREDNISolone SOD SUCC 125 MG/2 ML IVPush SCH ×2 (09:01→20:30)
[2020-04-18 12:05] VITALS: BP 136/84
[2020-04-18] MEDS: ONDANSETRON 2MG/ML, 2ML IVPush PRN ×2 (14:54→21:44)
[2020-04-18] MEDS: HYDROmorphone 2 MG/ML, 1ML IVPush PRN (15:00)
[2020-04-18 18:57] VITALS: BP 128/80
[2020-04-18] MEDS: TEMAZEPAM 15 MG CAPSULE PO PRN ×2 (19:55→21:44)
[2020-04-19] MEDS: HYDROmorphone 2 MG/ML, 1ML IVPush PRN ×3 (00:08→19:55)
[2020-04-19] MEDS: LORazepam 1MG TABLET PO PRN ×2 (00:25→15:35)
[2020-04-19] MEDS: OXYcodone IR 5MG TABLET PO SCH ×6 (00:30→20:43)
[2020-04-19] MEDS: LACTATED RINGERS 1,000 ML IV SCH ×4 (03:26→15:35)
[2020-04-19] MEDS: PIPERACILLIN/TAZO/PMX 3.375GM 50 ML IV SCH ×4 (03:26→20:44)
[2020-04-19 03:28] VITALS: BP 135/90
[2020-04-19] MEDS ORDERED: HYDROmorphone 1 MG/ML, 1ML INJ ONE (03:33)
[2020-04-19] MEDS: ONDANSETRON 2MG/ML, 2ML IVPush PRN ×2 (03:36→19:54)
[2020-04-19 07:15] VITALS: BP 134/88
[2020-04-19] MEDS: AMLODIPINE 10 MG TAB PO SCH (07:18)
[2020-04-19] MEDS: ACETAMINOPHEN 325 MG TABLET PO PRN (07:18)
[2020-04-19] MEDS: SENNA/DOCUSATE TABLET PO SCH ×2 (07:37→20:43)
[2020-04-19] MEDS: ENOXAPARIN 30 MG/0.3 ML SQ SCH ×2 (07:37→19:55)
[2020-04-19] MEDS: FAMOTIDINE 20 MG TABLET PO SCH (07:37)
[2020-04-19 10:57] LABS: HCG UR SG 1.024 (1.003-1.030)
[2020-04-19] MEDS ORDERED: ONDANSETRON 2MG/ML, 2ML IVPush PRN (11:00)
[2020-04-19] MEDS ORDERED: MEPERIDINE/PF 25MG/0.5ML IVPush PRN (11:00)
[2020-04-19] MEDS ORDERED: hydrALAzine 20 MG/ML, 1ML IV PRN (11:00)
[2020-04-19] MEDS ORDERED: ACETAMINOPHEN 325 MG TABLET PO PRN (11:00)
[2020-04-19] MEDS ORDERED: HYDROmorphone 1 MG/ML, 1ML INJ IVPush PRN (11:00)
[2020-04-19] MEDS ORDERED: EPHEDRINE 50 MG/ML, 1ML IVPush PRN (11:00)
[2020-04-19] MEDS ORDERED: OXYcodone 5 MG/5 ML ORAL.SOL UDC PO PRN (11:00)
[2020-04-19] MEDS ORDERED: PROMETHAZINE 25 MG/ML, 1ML IVPush PRN (11:00)
[2020-04-19] MEDS ORDERED: FENTANYL PF 100 MCG/2ML IV PRN (11:00)
[2020-04-19] MEDS ORDERED: CHLORHEXIDINE 15 ML UDC MM STA (11:16)
[2020-04-19] MEDS ORDERED: CHLORHEXIDINE 15 ML UDC ONE (11:16)
[2020-04-19] MEDS ORDERED: FENTANYL PF 100 MCG/2ML ONE ×2 (11:37→12:37)
[2020-04-19] MEDS ORDERED: MIDAZOLAM 1 MG/ML, 2ML ONE (11:37)
[2020-04-19] MEDS ORDERED: PROPOFOL 10 MG/ML, 20ML ONE (12:37)
[2020-04-19] MEDS ORDERED: DEXAMETHASONE 4 MG/ML, 1ML ONE (12:37)
[2020-04-19] MEDS ORDERED: SUCCINYLCHOLINE 20 MG/ML, 10ML ONE (12:37)
[2020-04-19] MEDS ORDERED: ONDANSETRON 2MG/ML, 2ML ONE (12:37)
[2020-04-19] MEDS ORDERED: OMNIPAQUE 350 MG/ML, 50 ML BOTTLE ONE (13:16)
[2020-04-19] MEDS ORDERED: INDOMETHACIN 50 MG SUPP.RECT ONE (13:22)
[2020-04-19] MEDS ORDERED: INDOMETHACIN 50 MG SUPP.RECT PR ONE (13:30)
[2020-04-19] MEDS ORDERED: LABETALOL 5MG/ML, 20ML ONE (13:34)
[2020-04-19] MEDS: LABETALOL 5MG/ML, 20ML IV PRN ×3 (13:36→14:13)
[2020-04-19] MEDS ORDERED: LORazepam 2 MG/ML, 1ML ONE (13:50)
[2020-04-19] MEDS ORDERED: LORazepam 2 MG/ML, 1ML IVPush PRN (14:00)
[2020-04-19] MEDS ORDERED: LACTATED RINGERS 1,000 ML IVBOLUS ONE (14:00)
[2020-04-19 15:24] VITALS: BP 165/108
[2020-04-19 18:36] VITALS: BP 153/93
[2020-04-19] MEDS: FAMOTIDINE 10 MG TAB PO SCH (20:55)
[2020-04-20] MEDS: HYDROmorphone 2 MG/ML, 1ML IVPush PRN ×3 (00:12→21:46)
[2020-04-20 00:16] VITALS: BP 149/90
[2020-04-20] MEDS: OXYcodone IR 5MG TABLET PO SCH ×6 (00:30→20:30)
[2020-04-20] MEDS: LACTATED RINGERS 1,000 ML IV SCH ×3 (03:08→20:00)
[2020-04-20] MEDS: PIPERACILLIN/TAZO/PMX 3.375GM 50 ML IV SCH ×4 (03:08→23:01)
[2020-04-20 03:52] VITALS: BP 139/85
[2020-04-20 05:04] LABS: BASOPHILS % (AUTO) 0 % (0-1); EOSINOPHILS % (AUTO) 0 % (1-7); LYMPHOCYTES % (AUTO) 16 % (22-44); MEAN CORPUSCULAR HEMOGLOBIN 27.3 pg (27.0-34.8); MEAN CORPUSCULAR HGB CONC 32.7 g/dL (32.4-35.8); MEAN PLATELET VOLUME 7.5 fL (7.4-10.4); MONOCYTES % (AUTO) 7 % (2-9); NEUTROPHILS % (AUTO) 77 % (42-75); PLATELET COUNT 264 x10^3/uL (130-400); RED BLOOD COUNT 3.58 x10^6/uL (3.82-5.3); RED CELL DISTRIBUTION WIDTH 15.5 % (9.6-15.2)
[2020-04-20 05:16] LABS: MD NO
[2020-04-20 05:20] LABS: ALANINE AMINOTRANSFERASE 53 U/L (12-78); ANION GAP 4 mmol/L (5-15); CALCIUM 7.9 mg/dL (8.5-10.1); CHLORIDE 106 mmol/L (98-107); CREATININE 0.88 mg/dL (0.55-1.02)
[2020-04-20 05:22] LABS: ALKALINE PHOSPHATASE 130 U/L (45-117); TOTAL PROTEIN 5.6 g/dL (6.4-8.2)
[2020-04-20] MEDS: ONDANSETRON 2MG/ML, 2ML IVPush PRN ×2 (05:41→21:46)
[2020-04-20 06:45] VITALS: BP 142/88
[2020-04-20] MEDS: AMLODIPINE 10 MG TAB PO SCH (07:43)
[2020-04-20] MEDS: ACETAMINOPHEN 325 MG TABLET PO PRN ×2 (08:30→21:46)
[2020-04-20] MEDS: ENOXAPARIN 30 MG/0.3 ML SQ SCH ×2 (08:31→20:00)
[2020-04-20] MEDS: SENNA/DOCUSATE TABLET PO SCH ×2 (08:31→21:00)
[2020-04-20] MEDS: FAMOTIDINE 10 MG TAB PO SCH ×2 (08:31→21:00)
[2020-04-20] MEDS: LORazepam 1MG TABLET PO PRN (13:08)
[2020-04-20 13:35] VITALS: BP 144/84
[2020-04-20] MEDS: POLYETHYLENE GLYCOL 17 GM PACKET PO SCH (20:00)
[2020-04-20 21:03] VITALS: BP 130/81
[2020-04-21] MEDS: OXYcodone IR 5MG TABLET PO SCH ×6 (00:30→20:30)
[2020-04-21 02:00] VITALS: BP 116/69
[2020-04-21] MEDS: LACTATED RINGERS 1,000 ML IV SCH ×3 (04:48→20:00)
[2020-04-21] MEDS: PIPERACILLIN/TAZO/PMX 3.375GM 50 ML IV SCH ×4 (04:49→22:44)
[2020-04-21 08:00] VITALS: BP 136/85
[2020-04-21] MEDS: SENNA/DOCUSATE TABLET PO SCH ×2 (08:20→20:34)
[2020-04-21] MEDS: AMLODIPINE 10 MG TAB PO SCH (08:20)
[2020-04-21] MEDS: FAMOTIDINE 10 MG TAB PO SCH ×2 (08:20→20:33)
[2020-04-21] MEDS: POLYETHYLENE GLYCOL 17 GM PACKET PO SCH (08:21)
[2020-04-21] MEDS: ENOXAPARIN 30 MG/0.3 ML SQ SCH ×2 (08:21→20:00)
[2020-04-21 08:32] LABS: BASOPHILS % (AUTO) 0 % (0-1); EOSINOPHILS % (AUTO) 1 % (1-7); LYMPHOCYTES % (AUTO) 11 % (22-44); MEAN CORPUSCULAR HEMOGLOBIN 26.6 pg (27.0-34.8); MEAN CORPUSCULAR HGB CONC 31.8 g/dL (32.4-35.8); MEAN PLATELET VOLUME 7.5 fL (7.4-10.4); MONOCYTES % (AUTO) 8 % (2-9); NEUTROPHILS % (AUTO) 80 % (42-75); PLATELET COUNT 288 x10^3/uL (130-400); RED BLOOD COUNT 3.83 x10^6/uL (3.82-5.3); RED CELL DISTRIBUTION WIDTH 15.7 % (9.6-15.2)
[2020-04-21 08:41] LABS: ALANINE AMINOTRANSFERASE 42 U/L (12-78); ANION GAP 7 mmol/L (5-15); CALCIUM 8.1 mg/dL (8.5-10.1); CHLORIDE 104 mmol/L (98-107); CREATININE 0.99 mg/dL (0.55-1.02)
[2020-04-21 08:47] LABS: ALKALINE PHOSPHATASE 141 U/L (45-117); BILIRUBIN,TOTAL 1.2 mg/dL (0.2-1.0)
[2020-04-21 09:05] LABS: MD SCAN
[2020-04-21] MEDS: SIMETHICONE 125 MG CHEW TAB PO SCH ×3 (12:27→20:33)
[2020-04-21] MEDS: ONDANSETRON 2MG/ML, 2ML IVPush PRN (12:32)
[2020-04-21] MEDS: HYDROmorphone 2 MG/ML, 1ML IVPush PRN ×2 (12:33→20:35)
[2020-04-21 13:45] VITALS: BP 113/72
[2020-04-21] MEDS ORDERED: OMNIPAQUE 350 MG/ML, 100ML BOTTLE ONE (17:50)
[2020-04-21 19:25] VITALS: BP 129/84
[2020-04-21] MEDS: ACETAMINOPHEN 325 MG TABLET PO PRN (20:34)
[2020-04-21] MEDS: ONDANSETRON ODT 4 MG PO PRN (20:34)
[2020-04-22] MEDS: OXYcodone IR 5MG TABLET PO SCH ×6 (00:30→21:40)
[2020-04-22 01:54] VITALS: BP 142/83
[2020-04-22] MEDS: PIPERACILLIN/TAZO/PMX 3.375GM 50 ML IV SCH ×4 (03:44→21:39)
[2020-04-22] MEDS: HYDROmorphone 2 MG/ML, 1ML IVPush PRN ×3 (04:53→17:54)
[2020-04-22 05:47] LABS: ALBUMIN 1.9 g/dL (3.4-5.0); ANION GAP 6 mmol/L (5-15); CHLORIDE 105 mmol/L (98-107)
[2020-04-22 05:50] LABS: ALANINE AMINOTRANSFERASE 34 U/L (12-78); ALKALINE PHOSPHATASE 143 U/L (45-117); BILIRUBIN,TOTAL 1.3 mg/dL (0.2-1.0); CREATININE 0.99 mg/dL (0.55-1.02)
[2020-04-22 06:03] LABS: BASOPHILS % (AUTO) 0 % (0-1); EOSINOPHILS % (AUTO) 2 % (1-7); LYMPHOCYTES % (AUTO) 11 % (22-44); MEAN CORPUSCULAR HEMOGLOBIN 26.9 pg (27.0-34.8); MEAN CORPUSCULAR HGB CONC 32.2 g/dL (32.4-35.8); MEAN PLATELET VOLUME 7.9 fL (7.4-10.4); MONOCYTES % (AUTO) 8 % (2-9); NEUTROPHILS % (AUTO) 79 % (42-75); PLATELET COUNT 250 x10^3/uL (130-400); RED BLOOD COUNT 3.59 x10^6/uL (3.82-5.3); RED CELL DISTRIBUTION WIDTH 15.5 % (9.6-15.2)
[2020-04-22 06:25] LABS: MD NO
[2020-04-22 06:30] VITALS: BP 104/65
[2020-04-22] MEDS: LACTATED RINGERS 1,000 ML IV SCH ×2 (07:00→14:31)
[2020-04-22] MEDS: ENOXAPARIN 30 MG/0.3 ML SQ SCH ×2 (08:00→20:00)
[2020-04-22] MEDS: AMLODIPINE 10 MG TAB PO SCH (08:15)
[2020-04-22] MEDS: SIMETHICONE 125 MG CHEW TAB PO SCH ×4 (08:15→21:40)
[2020-04-22] MEDS: POLYETHYLENE GLYCOL 17 GM PACKET PO SCH (08:16)
[2020-04-22] MEDS: SENNA/DOCUSATE TABLET PO SCH ×2 (08:16→21:40)
[2020-04-22] MEDS: FAMOTIDINE 10 MG TAB PO SCH ×2 (09:00→22:33)
[2020-04-22] MEDS: ONDANSETRON ODT 4 MG PO PRN ×2 (12:28→17:54)
[2020-04-22 12:52] VITALS: BP 116/77
[2020-04-22] MEDS ORDERED: POLYETHYLENE GLYCOL 17 GM PACKET NG PRN (15:00)
[2020-04-22 20:08] VITALS: BP 132/86
[2020-04-23 00:10] VITALS: BP 118/75
[2020-04-23] MEDS: OXYcodone IR 5MG TABLET PO SCH ×6 (00:30→20:30)
[2020-04-23] MEDS: HYDROmorphone 2 MG/ML, 1ML IVPush PRN ×2 (03:38→21:03)
[2020-04-23] MEDS: ONDANSETRON 2MG/ML, 2ML IVPush PRN (03:42)
[2020-04-23] MEDS: PIPERACILLIN/TAZO/PMX 3.375GM 50 ML IV SCH ×4 (04:11→21:53)
[2020-04-23 05:30] LABS: BASOPHILS % (AUTO) 0 % (0-1); EOSINOPHILS % (AUTO) 3 % (1-7); LYMPHOCYTES % (AUTO) 14 % (22-44); MEAN CORPUSCULAR HEMOGLOBIN 26.7 pg (27.0-34.8); MEAN CORPUSCULAR HGB CONC 31.9 g/dL (32.4-35.8); MEAN PLATELET VOLUME 7.9 fL (7.4-10.4); MONOCYTES % (AUTO) 8 % (2-9); NEUTROPHILS % (AUTO) 75 % (42-75); PLATELET COUNT 271 x10^3/uL (130-400); RED CELL DISTRIBUTION WIDTH 15.8 % (9.6-15.2)
[2020-04-23 05:38] LABS: CHLORIDE 109 mmol/L (98-107)
[2020-04-23 05:48] LABS: ALANINE AMINOTRANSFERASE 30 U/L (12-78); ALKALINE PHOSPHATASE 138 U/L (45-117); ANION GAP 4 mmol/L (5-15); BILIRUBIN,TOTAL 0.8 mg/dL (0.2-1.0); CALCIUM 8.4 mg/dL (8.5-10.1); CREATININE 0.95 mg/dL (0.55-1.02); TOTAL PROTEIN 6.2 g/dL (6.4-8.2)
[2020-04-23 06:12] LABS: MD NO
[2020-04-23] MEDS: SIMETHICONE 125 MG CHEW TAB PO SCH ×4 (06:19→21:01)
[2020-04-23] MEDS ORDERED: CHLORHEXIDINE 15 ML UDC ONE (07:33)
[2020-04-23] MEDS: ENOXAPARIN 30 MG/0.3 ML SQ SCH ×2 (08:00→20:00)
[2020-04-23] MEDS ORDERED: FENTANYL PF 100 MCG/2ML ONE (08:04)
[2020-04-23] MEDS ORDERED: MIDAZOLAM 1 MG/ML, 2ML ONE ×2 (08:04)
[2020-04-23] MEDS ORDERED: PROPOFOL 150 ML ONE (08:25)
[2020-04-23] MEDS ORDERED: ACETAMINOPHEN 650 MG/20.3 ML UDC ONE (08:50)
[2020-04-23] MEDS ORDERED: OXYcodone 5 MG/5 ML ORAL.SOL UDC ONE (08:50)
[2020-04-23] MEDS ORDERED: ACETAMINOPHEN 325 MG TABLET PO PRN (09:00)
[2020-04-23] MEDS ORDERED: METOPROLOL 1 MG/ML, 5ML IV PRN (09:00)
[2020-04-23] MEDS ORDERED: LABETALOL 5MG/ML, 20ML IV PRN (09:00)
[2020-04-23] MEDS ORDERED: DIAZEPAM 5 MG/ML, 2ML IVPush PRN (09:00)
[2020-04-23] MEDS ORDERED: LORazepam 2 MG/ML, 1ML IVPush PRN (09:00)
[2020-04-23] MEDS ORDERED: hydrALAzine 20 MG/ML, 1ML IV PRN (09:00)
[2020-04-23] MEDS ORDERED: ONDANSETRON 2MG/ML, 2ML IVPush PRN (09:00)
[2020-04-23] MEDS ORDERED: FENTANYL PF 100 MCG/2ML IV PRN (09:00)
[2020-04-23] MEDS ORDERED: MEPERIDINE/PF 25MG/0.5ML IVPush PRN (09:00)
[2020-04-23] MEDS ORDERED: PROMETHAZINE 25 MG/ML, 1ML IVPush PRN (09:00)
[2020-04-23] MEDS ORDERED: OXYcodone 5 MG/5 ML ORAL.SOL UDC PO PRN (09:00)
[2020-04-23] MEDS: AMLODIPINE 10 MG TAB PO SCH (10:17)
[2020-04-23] MEDS: SENNA/DOCUSATE TABLET PO SCH ×2 (10:17→21:01)
[2020-04-23] MEDS: POLYETHYLENE GLYCOL 17 GM PACKET PO SCH ×2 (10:17→21:01)
[2020-04-23] MEDS: FAMOTIDINE 10 MG TAB PO SCH ×2 (10:43→21:13)
[2020-04-23 13:06] VITALS: BP 109/72
[2020-04-23] MEDS ORDERED: POLYETHYLENE GLYCOL 17 GM PACKET NG PRN (18:04)
[2020-04-23 19:02] VITALS: BP 116/82
[2020-04-23] MEDS: LACTATED RINGERS 1,000 ML IV SCH (20:00)
[2020-04-23] MEDS ORDERED: FAMOTIDINE 20 MG TABLET PO SCH (21:32)
[2020-04-23 22:05] LABS: MICROSCOPIC INDICATED
[2020-04-24 00:29] VITALS: BP 111/74
[2020-04-24] MEDS: OXYcodone IR 5MG TABLET PO SCH ×3 (01:26→11:21)
[2020-04-24] MEDS: HYDROmorphone 2 MG/ML, 1ML IVPush PRN (03:38)
[2020-04-24] MEDS: ONDANSETRON ODT 4 MG PO PRN ×2 (03:38→07:51)
[2020-04-24] MEDS: PIPERACILLIN/TAZO/PMX 3.375GM 50 ML IV SCH ×2 (03:39→09:49)
[2020-04-24 04:44] VITALS: BP 103/67
[2020-04-24 06:05] LABS: CHLORIDE 108 mmol/L (98-107)
[2020-04-24 06:08] LABS: BASOPHILS % (AUTO) 1 % (0-1); EOSINOPHILS % (AUTO) 4 % (1-7); LYMPHOCYTES % (AUTO) 19 % (22-44); MEAN CORPUSCULAR HEMOGLOBIN 27.2 pg (27.0-34.8); MEAN CORPUSCULAR HGB CONC 32.3 g/dL (32.4-35.8); MEAN PLATELET VOLUME 7.7 fL (7.4-10.4); MONOCYTES % (AUTO) 9 % (2-9); NEUTROPHILS % (AUTO) 68 % (42-75); PLATELET COUNT 287 x10^3/uL (130-400); RED BLOOD COUNT 3.36 x10^6/uL (3.82-5.3); RED CELL DISTRIBUTION WIDTH 15.7 % (9.6-15.2)
[2020-04-24 06:14] LABS: ALANINE AMINOTRANSFERASE 29 U/L (12-78); ALBUMIN 2.2 g/dL (3.4-5.0); ALKALINE PHOSPHATASE 130 U/L (45-117); ANION GAP 6 mmol/L (5-15); BILIRUBIN,TOTAL 0.7 mg/dL (0.2-1.0); CALCIUM 8.7 mg/dL (8.5-10.1); CREATININE 1.04 mg/dL (0.55-1.02); TOTAL PROTEIN 6.5 g/dL (6.4-8.2)
[2020-04-24 06:54] LABS: MD NO
[2020-04-24 07:02] VITALS: BP 122/77
[2020-04-24] MEDS: ENOXAPARIN 30 MG/0.3 ML SQ SCH (08:00)
[2020-04-24] MEDS ORDERED: FAMOTIDINE 40 MG TABLET ONE (08:29)
[2020-04-24] MEDS: POLYETHYLENE GLYCOL 17 GM PACKET PO SCH (08:33)
[2020-04-24] MEDS: SIMETHICONE 125 MG CHEW TAB PO SCH ×2 (08:33→11:21)
[2020-04-24] MEDS: AMLODIPINE 10 MG TAB PO SCH (08:34)
[2020-04-24] MEDS: SENNA/DOCUSATE TABLET PO SCH (08:34)
[2020-04-24] MEDS: ACETAMINOPHEN 325 MG TABLET PO PRN (08:38)
[2020-04-24] MEDS: LACTATED RINGERS 1,000 ML IV SCH (08:38)
[2020-04-24] MEDS ORDERED: FAMOTIDINE 20 MG TABLET PO SCH (09:00)
[2020-04-24] MEDS ORDERED: OXYC5TAB3 PO (09:41)
[2020-04-24] MEDS ORDERED: FAMO20TA7 PO (09:41)
[2020-04-24] MEDS ORDERED: ONDA4TAB13 PO (09:41)
[2020-04-24] MEDS ORDERED: AMOX1TAB64 PO (09:41)
[2020-04-24 12:20] VITALS: BP 118/75
[2020-04-24] MEDS: LORazepam 1MG TABLET PO PRN (13:58)
== END 2020-04-24 14:25 | disposition home or self-care (01) | DRG 395 ==
LOC: ED 10:49 → EDIP 14:49 → 4NW 16:37 → 4NE 04-19 12:13
PROVIDERS: ADMIT Internal Medicine; ATTEND Family Medicine
PROC: 0T9B30Z Drainage of Bladder with Drainage Device, Percutaneous Approach (ICD-10-PCS; principal; 2020-04-14)
PROC: 0F7D8DZ Dilation of Pancreatic Duct with Intraluminal Device, Via Natural or Artificial Opening Endoscopic (ICD-10-PCS; 2020-04-16)
PROC: 0F798DZ Dilation of Common Bile Duct with Intraluminal Device, Via Natural or Artificial Opening Endoscopic (ICD-10-PCS; 2020-04-19)
PROC: 0FPB8DZ Removal of Intraluminal Device from Hepatobiliary Duct, Via Natural or Artificial Opening Endoscopic (ICD-10-PCS; 2020-04-23)
DX: K91.89 Other postprocedural complications and disorders of digestive system (principal); D72.829 Elevated white blood cell count, unspecified; F41.9 Anxiety disorder, unspecified; I10 Essential (primary) hypertension; Y83.8 Other surgical procedures as the cause of abnormal reaction of the patient, or of later complication, without mention of misadventure at the time of the procedure; E80.6 Other disorders of bilirubin metabolism; D63.8 Anemia in other chronic diseases classified elsewhere; Z20.828 Contact with and (suspected) exposure to other viral communicable diseases; Z90.49 Acquired absence of other specified parts of digestive tract; Z88.5 Allergy status to narcotic agent; Z88.1 Allergy status to other antibiotic agents; Z79.899 Other long term (current) drug therapy; Z79.891 Long term (current) use of opiate analgesic; Z98.891 History of uterine scar from previous surgery; Z98.51 Tubal ligation status; Z88.8 Allergy status to other drugs, medicaments and biological substances; Z72.89 Other problems related to lifestyle
CPT/HCPCS: 36415; 74018; 74330; 96374; 96375; 96376; 99285; J3490; 71045; 74160; 74177; 78226; 80053; 81001; 81025; 83690; 83735; 84100; 84703; 85025; 85610; 85651; 86140; 87040; 87077; 87086; 87635; G0378; J0690; J1100; J1170; J1885; J2250; J2405; J2543; J2704; J3010; Q0162; Q9967; A9537; C1769; C1894; C2625; J0330; J0360; J2060; J2930; J3480; J7120

== ENCOUNTER → 2020-07-14 | Outpatient (CLI) | payer OTHER ==
[~2020-07-14] MED LIST changes: +AMLO-211 PO; -AMLO10TA8 PO; +AMOX1TAB64 PO; +FAMO20TA7 PO; +ONDA4TAB13 PO; +OXYC5TAB3 PO
== END | disposition home or self-care (01) ==
LOC: RAD 09:59
PROVIDERS: ATTEND Internal Medicine Gastroenterology
DX: R14.0 Abdominal distension (gaseous) (principal); R11.0 Nausea; R10.11 Right upper quadrant pain
CPT/HCPCS: 78264; A9541

== ENCOUNTER 2021-01-06 07:37 | Day surgery (SDC) | payer OTHER ==
[~2021-01-06] VITALS: Ht 172.7 cm; Wt 123.9 kg
[~2021-01-06 07:37] MED LIST changes: -OXYC5TAB3 PO; +OXYC5TAB98 PO
[2021-01-06] MEDS ORDERED: LACTATED RINGERS 1,000 ML IV SCH (08:00)
[2021-01-06] MEDS ORDERED: CHLORHEXIDINE 15 ML UDC PO ONE (08:00)
[2021-01-06 08:05] VITALS: BP 121/86
[2021-01-06] MEDS ORDERED: CHLORHEXIDINE 15 ML UDC ONE (08:12)
[2021-01-06 08:20] LABS: HCG UR SG 1.022 (1.003-1.030)
[2021-01-06] MEDS ORDERED: MIDAZOLAM 1 MG/ML, 2ML ONE (08:24)
[2021-01-06] MEDS ORDERED: FENTANYL PF 250 MCG/5ML ONE (08:24)
[2021-01-06 08:28] LABS: BASOPHILS % (AUTO) 1 % (0-1); EOSINOPHILS % (AUTO) 2 % (1-7); LYMPHOCYTES % (AUTO) 33 % (22-44); MEAN CORPUSCULAR HEMOGLOBIN 27.3 pg (27.0-34.8); MEAN CORPUSCULAR HGB CONC 33.2 g/dL (32.4-35.8); MEAN PLATELET VOLUME 8.6 fL (7.4-10.4); MONOCYTES % (AUTO) 6 % (2-9); NEUTROPHILS % (AUTO) 59 % (42-75); PLATELET COUNT 217 x10^3/uL (130-400); RED BLOOD COUNT 4.87 x10^6/uL (3.82-5.3); RED CELL DISTRIBUTION WIDTH 15.9 % (9.6-15.2)
[2021-01-06] MEDS ORDERED: hydrALAzine 20 MG/ML, 1ML IV PRN (08:30)
[2021-01-06] MEDS ORDERED: LABETALOL 5MG/ML, 20ML IV PRN (08:30)
[2021-01-06] MEDS ORDERED: ACETAMINOPHEN 325 MG TABLET PO PRN (08:30)
[2021-01-06] MEDS ORDERED: EPHEDRINE 50 MG/ML, 1ML IVPush PRN (08:30)
[2021-01-06] MEDS ORDERED: ONDANSETRON 2MG/ML, 2ML IVPush PRN (08:30)
[2021-01-06] MEDS ORDERED: OXYcodone 5 MG/5 ML ORAL.SOL UDC PO PRN (08:30)
[2021-01-06] MEDS ORDERED: MEPERIDINE/PF 25MG/0.5ML IVPush PRN (08:30)
[2021-01-06] MEDS ORDERED: DIPHENHYDRAMINE 50 MG/ML, 1ML IVPush PRN (08:30)
[2021-01-06] MEDS ORDERED: KETOROLAC 30 MG/1 ML IVPush PRN (08:30)
[2021-01-06] MEDS ORDERED: PROMETHAZINE 25 MG/ML, 1ML IVPush PRN (08:30)
[2021-01-06] MEDS ORDERED: METOCLOPRAMIDE 5 MG/ML, 2ML IVPush PRN (08:30)
[2021-01-06] MEDS ORDERED: HYDROmorphone 1 MG/ML, 1ML INJ IVPush PRN (08:30)
[2021-01-06] MEDS ORDERED: METOPROLOL 1 MG/ML, 5ML IV PRN (08:30)
[2021-01-06] MEDS ORDERED: HALOPERIDOL 5 MG/ML IV PRN (08:30)
[2021-01-06] MEDS ORDERED: OMNIPAQUE 350 MG/ML, 50 ML BOTTLE ONE (08:35)
[2021-01-06 08:38] LABS: ALANINE AMINOTRANSFERASE 22 U/L (12-78); ALBUMIN 3.2 g/dL (3.4-5.0); ANION GAP 4 mmol/L (5-15); BILIRUBIN, DIRECT < 0.1 mg/dL (0.1-0.2); CALCIUM 8.7 mg/dL (8.5-10.1); CHLORIDE 108 mmol/L (98-107); CREATININE 0.91 mg/dL (0.55-1.02)
[2021-01-06 08:40] LABS: ALKALINE PHOSPHATASE 63 U/L (45-117); BILIRUBIN,INDIRECT 0.2 mg/dL (0.0-2.0); BILIRUBIN,TOTAL 0.3 mg/dL (0.2-1.0); TOTAL PROTEIN 7.5 g/dL (6.4-8.2)
[2021-01-06] MEDS ORDERED: DEXAMETHASONE 4 MG/ML, 1ML ONE (08:55)
[2021-01-06] MEDS ORDERED: ONDANSETRON 2MG/ML, 2ML ONE (08:55)
[2021-01-06] MEDS ORDERED: ROCURONIUM 10 MG/ML,10ML ONE (08:55)
[2021-01-06] MEDS ORDERED: SUCCINYLCHOLINE 20 MG/ML, 10ML ONE (08:55)
[2021-01-06] MEDS ORDERED: PROPOFOL 10 MG/ML, 20ML ONE (08:55)
[2021-01-06] MEDS ORDERED: ACETAMINOPHEN 650 MG/20.3 ML UDC ONE (10:00)
[2021-01-06] MEDS ORDERED: FENTANYL PF 100 MCG/2ML ONE (10:00)
[2021-01-06] MEDS: FENTANYL PF 100 MCG/2ML IV PRN ×2 (10:21→10:26)
== END 2021-01-06 13:40 | disposition home or self-care (01) ==
LOC: OR 07:37
PROVIDERS: ATTEND Internal Medicine Gastroenterology
DX: Z46.59 Encounter for fitting and adjustment of other gastrointestinal appliance and device (principal); K80.50 Calculus of bile duct without cholangitis or cholecystitis without obstruction; K29.50 Unspecified chronic gastritis without bleeding; K29.80 Duodenitis without bleeding; K21.9 Gastro-esophageal reflux disease without esophagitis; I10 Essential (primary) hypertension; F41.9 Anxiety disorder, unspecified; G43.909 Migraine, unspecified, not intractable, without status migrainosus; E66.01 Morbid (severe) obesity due to excess calories; Z20.822 Contact with and (suspected) exposure to COVID-19; Z68.41 Body mass index [BMI] 40.0-44.9, adult; Z79.891 Long term (current) use of opiate analgesic; Z79.899 Other long term (current) drug therapy; Z88.5 Allergy status to narcotic agent; Z90.49 Acquired absence of other specified parts of digestive tract
CPT/HCPCS: 36415; 43239; 43261; 43264; 43275; 74328; 80048; 80076; 81025; 83690; 85025; 87635; 88305; C1769; J0330; J1100; J2250; J2405; J2704; J3010; J7120; Q9967

== ENCOUNTER 2021-04-01 13:37 | Outpatient (CLI) | payer OTHER | END 2021-04-01 23:59 | disposition home or self-care (01) | LOC: RAD 13:37 | PROVIDERS: ATTEND Physician Assistant | DX: D26.1 Other benign neoplasm of corpus uteri (principal); N93.9 Abnormal uterine and vaginal bleeding, unspecified | CPT/HCPCS: 76830 ==